=== PATIENT | male | born 1995 | race Caucasian/White ===

== ENCOUNTER 2018-09-01 19:49 | Emergency (ER) | payer BC ==
[~2018-09-01] VITALS: Ht 172.7 cm; Wt 61.4 kg
[2018-09-01] MEDS ORDERED: DEPRESSION MED (21:37)
[2018-09-01 22:29] VITALS: BP 137/96; PULSE 98; TEMP 97.3
== END 2018-09-01 23:13 | disposition home or self-care (01) ==
LOC: COL.ER 19:49
DX: T62.0X2A Toxic effect of ingested mushrooms, intentional self-harm, initial encounter (principal); T40.7X2A Poisoning by cannabis (derivatives), intentional self-harm, initial encounter